=== PATIENT | female | born 1935 | race Caucasian/White ===

== ENCOUNTER 2016-08-30 12:54 | Emergency (ER) | payer MEDICARE, BC, OTHER ==
[2014-12-19 13:55] VITALS: BMI 28.3
[~2016-08-30 12:54] MED LIST: GLUCOPHAGE500 MG PO; HCTZ25 MG PO; INDERAL 40 MG T40 MG PO; MEDROL DOSE PACK4 MG PO; PRINIVIL10 MG PO; SYNTHROID88 MCG PO; TRICOR145 MG PO; VITAMIN D5000 UNIT PO; XANAX1 MG PO; ZETIA10 MG PO; ZYRTEC10 MG PO
[2016-08-30 14:03] LABS: BASOPHILS 0.1 % (0.0-2.0); EOSINOPHILS 3.2 % (0-7); HEMATOCRIT 40.7 % (36.0-48.0); HEMOGLOBIN 13.6 g/dL (12-16); IMMATURE GRANULOCYTES 0.3 % (0-5); LYMPHOCYTES 16.5 % (15-50); MCH 32.1 pg (26.0-34.0); MCHC 33.4 g/dL (31.0-37.0); MEAN PLATELET VOLUME 12.9 fL (7.4-10.4); MONOCYTES 5.2 % (2-11); NEUTROPHILS 74.7 % (40-80); PLATELET COUNT 187 10x3/uL (130-400); RBC 4.24 10x6/uL (4.00-5.40); RDW 13.6 % (11.5-14.5); WBC 7.6 10x3/uL (4.8-10.8)
== END 2016-08-30 14:54 | disposition home or self-care (01) ==
LOC: D.ER 12:54
PROVIDERS: Nurse Practitioner Acute Care
DX: K21.9 Gastro-esophageal reflux disease without esophagitis (principal); R51 Headache; I10 Essential (primary) hypertension; E11.9 Type 2 diabetes mellitus without complications

== ENCOUNTER 2018-02-19 13:53 | Emergency (ER) | payer MEDICARE ==
[~2018-02-19] VITALS: Ht 160 cm; Wt 76.8 kg
[2018-02-19 14:09] VITALS: Ht 160 cm; Wt 76.8 kg
[2018-02-19 15:14] VITALS: BP 151/87
== END 2018-02-19 15:17 | disposition home or self-care (01) ==
LOC: D.ER 13:53
DX: S43.402A Unspecified sprain of left shoulder joint, initial encounter (principal); X58.XXXA Exposure to other specified factors, initial encounter; Y93.89 Activity, other specified; Y92.89 Other specified places as the place of occurrence of the external cause; S50.02XA Contusion of left elbow, initial encounter; E11.9 Type 2 diabetes mellitus without complications; I10 Essential (primary) hypertension

== ENCOUNTER 2018-05-18 10:05 | Outpatient (CLI) | payer MEDICARE ==
[~2018-05-18] VITALS: Ht 154.9 cm; Wt 78.2 kg
--- NOTE | ~2018-05-18 | HEMODYNAMI ---
PATIENT:SHEA VIEYRA MEDICAL RECORD: [id number] : 39 LOCATION:DHusamCAT ADMISSION DATE: 05/18/18 Generatedon:05/18/201812:58 Patient name: SHEA VIEYRA Patient #: [id number] SSN: D OB: 1935 Date of study: 05/18/2018 Page: Of Hemodynamic Procedure Report Patient Data Patient Demographics Procedure consent was obtained First Name: SHEA Gender: Female Last Name: AZALIA : 1935 Middle Initial: F Age: 83 year(s) Patient #: [id number] Race: Unknown Additional ID: [id number] Contact details [address]: [address] [place] [address] State: [place] City: [place] Zip code: [address] Past Medical History Allergies Allergen Reaction Date Comments Reported Other allergy 05/18/2018 AMOXICILLIN, STATINS, HYDROCODONE, TRAMADOL, LEVOFLOXACIN Admission Admission Data Admission Date: 05/18/2018 Admission Time: 10:05 Weight (lbs.): 171.96 Weight (kg.): 78 Lab Results Lab Result Date: 05/18/2018 Lab Result Time: 0:00 Biochemistry Name Units Result Min Max BUN mg/dl 27 --(----)-* 7 18 Creatinine mg/dl 1 --(--*-)-- 0.6 1.3 CBC Name Units Result Min Max Hemoglobin g/dl 13.8 --(*---)-- 13.5 17.5 Platelets 10^3/l 164 --(*---)-- 130 400 Coagulation Name Units Result Min Max INR units 1.05 --(--*-)-- 0.85 1.17 PT sec 13.2 --(-*--)-- 11.6 15 Procedure Procedure Types Cath Procedure Diagnostic Procedure C [facility] w/Coronaries Sedation Charges Moderate Sedation up to 15 minutes Procedure Description Procedure Date Procedure Date: 05/18/2018 Procedure Start Time: 12:49 Procedure End Time: 12:57 Procedure Staff Name Function Nando Gaytan MD Performing Physician Liliana Truong RT Monitor Hector Agudelo RN Nurse Phillip Hernandez RT Scrub Matthew Scanlon RN Marketing And Communications Officer Procedure Data Cath Procedure Fluoroscopy Diagnostic fluoroscopy Total fluoroscopy Time: 1 time: 1 min min Diagnostic fluoroscopy Total fluoroscopy dose: 179 dose: 179 mGy mGy Contrast Material Contrast Material Type Amount (ml) Isovue 300 48 Entry Location Entry Primary Successful Side Size Upsize Upsize Entry Closure Succes sful Closure Location (Fr) 1 (Fr) 2 (Fr) Remarks Device Remarks Femoral Right 5 Fr Exoseal artery Estimated blood loss: 5 ml Diagnostic catheters Device Type Used For End Catheter Placement MULTIPACK Pigtail 5 Fr Procedure catheter MULTIPACK JL 4.0 5Fr Procedure catheter MULTIPACK 3DRC 5Fr Procedure catheter Procedure Complications No complications Procedure Medications Medication Administration Route Dosage 0.9% NaCl I.V. 100 ml/hr Oxygen etCO2 Nasal cannula 2 l/min Heparin Flush Bag added to field 2 bags (1000units/500ml NS) Lidocaine 2% added to field 20 Versed I.V. 1 mg Fentanyl I.V. 50 mcg Versed I.V. 1 mg Fentanyl I.V. 50 mcg Hemodynamics Rest HGB: 13.8 (g/dl) Heart Rate: 79 (bpm) Snapshots Pre Cath Intra NCS Post Cath Vital Signs Time Heart Resp SPO2 etCO2 NIBP (mmHg) Rhythm Pain Sedation Rate (ipm) (%) (mmHg) Status Level (bpm) 12:21:06 78 22 99 30.1 176/84(126) NSR 0 (11) 10(A) , No pain 12:25:28 79 19 97 33.1 172/75(125) NSR 0 (11) 10(A) , No pain 12:29:53 79 18 96 33.1 166/73(119) NSR 0 (11) 10(A) , No pain 12:34:17 74 15 97 33.1 157/76(119) NSR 0 (11) 10(A) , No pain 12:38:39 73 17 96 35.3 149/74(126) NSR 0 (11) 10(A) , No pain 12:42:57 76 17 94 36.1 156/78(123) NSR 0 (11) 10(A) , No pain 12:47:21 72 11 93 38.3 129/60(97) NSR 0 (11) 10(A) , No pain 12:51:33 71 24 95 38.3 135/72(103) NSR 0 (11) 10(A) , No pain 12:55:47 71 14 94 36.8 141/71(100) NSR 0 (11) 10(A) , No pain Medications Time Medication Route Dose Verified Delivered Reason Notes Eff ectiveness by by 12:22:58 0.9% NaCl I.V. 100 Hector Hector Per ml/hr Lorigan Lorigan physician RN RN 12:23:07 Oxygen etCO2 2 Hector Hector Per Nasal l/min Lorigan Lorigan physician cannula RN RN 12:23:17 Heparin Flush added 2 Hector Hector used for Bag to bags Lorigan Lorigan procedure (1000units/500ml field RN RN NS) 12:23:28 Lidocaine 2% added 20ml Hector Hector for local to vial Lorigan Lorigan anesthetic field RN RN 12:39:15 Versed I.V. 1 mg Hector Hector for Lorigan Lorigan sedation RN RN 12:39:24 Fentanyl I.V. 50 Hector Hector for mcg Lorigan Lorigan sedation RN RN 12:52:56 Versed I.V. 1 mg Hector Hector for Lorigan Lorigan sedation RN RN 12:53:00 Fentanyl I.V. 50 Hector Hector for mcg Lorigan Lorigan sedation RN substation superintendent Log Time Note 11:55:11 Matthew Scanlon RN sent for patient. Start room use. 12:01:53 Patient Weight : 171.96 lbs 12:02:42 Lab Result : Hemoglobin 13.8 g/dl 12:02:42 Lab Result : Creatinine 1 mg/dl 12:02:42 Lab Result : BUN 27 mg/dl 12:02:42 Lab Result : INR 1.05 units 12:02:42 Lab Result : PT 13.2 sec 12:02:42 Lab Result : Platelets 164 10^3/l 12:03:12 Time tracking: Regular hours (M-F 7:00 - 5:00) 12:03:17 Plan of Care:Hemodynamics will remain stable., Cardiac rhythm will remain stable., Comfort level will be maintained., Respiratory function will remain adequate., Patient/ family verbilizes understanding of procedure., Procedure tolerated without complication., Recovers from procedure without complications.. 12:12:08 Patient received from ED to CCL 2 Alert and oriented. Tansferred to table in Supine position. 12:12:09 Warm blankets applied, and ricarda hugger turned on for patient comfort. 12:12:09 Correct patient and procedure confirmed by team. 12:12:10 Signed procedure consent form obtained from patient. 12:12:11 ECG and BP/O2 sat monitors applied to patient. 12:19:54 Vital chart was started 12:20:01 Family in waiting room. 12:20:05 Patient NPO since Midnight. 12:22:58 0.9% NaCl 100 ml/hr I.V. was administered by Hector Agudelo RN; Per physician; 12:23:07 Oxygen 2 l/min etCO2 Nasal cannula was administered by Hector Agudelo RN; Per physician; 12:23:17 Heparin Flush Bag (1000units/500ml NS) 2 bags added to field was administered by Hector Agudelo RN; used for procedure; 12:23:28 Lidocaine 2% 20ml vial added to field was administered by Hector Agudelo RN; for local anesthetic; 12:25:29 Baseline sample Acquired. 12:25:32 Rhythm: sinus rhythm 12:25:34 Full Disclosure recording started 12:25:40 H&P Date Dictated: 05/18/2018 Emergent; H&P N/A. 12:25:41 Pre-procedure instructions explained to patient. 12:25:41 Pre-op teaching completed and patient verbalized understanding. 12:25:44 Is the patient allergic to Iodine/contrast media? No. 12:25:46 Is patient on blood thinner?Yes 12:25:49 ACC The patient was administered the following blood thiners within the last 24 hours: ACCPlavix 12:26:49 Patient diabetic? Yes. 12:26:56 If diabetic: On Metformin? No 12:26:58 Previous problem with sedation/anesthesia? No ? 12:27:05 Snore? Yes 12:27:07 Sleep apnea? No 12:27:08 Deviated septum? No 12:27:08 Opens mouth fully? Yes 12:27:09 Sticks out tongue? Yes 12:27:12 Airway obstruction? No ? 12:27:15 Dentures? No ? 12:27:19 Pre procedure: right dorsailis pedis pulse 1+ Palpable, but thready & weak; easily obliterated 12:27:21 Patient pain scale 0/10 ?. 12:27:26 IV patent on arrival in left forearm with 0.9% NaCl at [facility]. 12:27:28 Lab results completed and on chart. 12:27:30 Right groin area was prepped with chlora-prep and draped in sterile fashion 12:27:31 Alarms reviewed by R. N. 12:27:32 Sharps counted by scrub and verified by R.N. 12:27:37 Use device set Femoral Dx 12:27:38 Tegaderm 4 x 4 (1626W) opened to sterile field. 12:27:40 ACIST Manifold (82624) opened to sterile field. 12:27:40 ACIST Hand Control (61316) opened to sterile field. 12:27:41 ACIST Syringe (57078) opened to sterile field. 12:27:42 Bag Decanter (2002S) opened to sterile field. 12:27:42 Medline Cath Pack ([id number]) opened to sterile field. 12:27:43 DIAGNOSTIC WIRE .035 260cm J wire (415465) opened to sterile field. 12:27:44 DIAGNOSTIC Multipack 5Fr catheter set (RX1100) opened to sterile field. 12:27:45 SHEATH 5FR Blair (FPT808) opened to sterile field. 12:37:53 Patient allergic to Other allergyAMOXICILLIN, STATINS, HYDROCODONE, TRAMADOL, LEVOFLOXACIN 12:38:33 --------ALL STOP TIME OUT------ 12:38:34 Final Timeout: patient, procedure, and site verified with staff and physician. All members of the team are in agreement. 12:38:35 Right groin site verified by team. 12:38:40 Physical assessment completed. ASA score P 2 - A patient with mild systemic disease as per Nando Gaytan MD. 12:38:43 Sedation plan: IV Moderate Sedation Medication:Versed, Fentanyl 12:39:15 Versed 1 mg I.V. was administered by Hector Agudelo RN; for sedation; 12:39:24 Fentanyl 50 mcg I.V. was administered by Hector Agudelo RN; for sedation; 12:42:29 Zero performed for pressure channel P1 12:49:13 Procedure started. 12:49:45 Local anesthetic to right femoral artery with Lidocaine 2% by Nando Gaytan MD.INITIAL ACCESS ONLY 12:50:17 A 5 Fr sheath was inserted into the Right Femoral artery 12:50:37 A MULTIPACK Pigtail 5 Fr catheter was advanced over the wire and used for Procedure. 12:50:49 LV gram done using MENG 12:50:52 Injector settings: Ml/sec: 10, Volume: 20, 12:51:16 EF : 70 % 12:51:21 Catheter removed. 12:51:28 A MULTIPACK JL 4.0 5Fr catheter was advanced over the wire and used for Procedure. 12:52:14 LCA angiography performed. 12:52:19 Catheter removed. 12:52:26 A MULTIPACK 3DRC 5Fr catheter was advanced over the wire and used for Procedure. 12:52:56 Versed 1 mg I.V. was administered by Hector Agudelo RN; for sedation; 12:53:00 Fentanyl 50 mcg I.V. was administered by Hector Agudelo RN; for sedation; 12:53:17 RCA angiography performed. 12:53:25 Catheter removed. 12:53:27 EXOSEAL 5Fr (EX500) opened to sterile field. 12:53:50 Sheath removed intact; hemostasis achieved with Exoseal to the Right Femoral artery. 12:54:04 Procedure ended.(Physican Out) 12:54:15 Fluoroscopy time 01.00 minutes. 12:54:19 Fluoroscopy dose: 179 mGy 12:54:19 Flurop Dose total: 179 12:54:22 Contrast amount:Isovue 300 48ml. 12:54:23 Sharps counted by scrub and verified by R.N. 12:54:28 Post-op/insertion site Right Femoral artery dressed using a 4 x 4 and Tegaderm. 12:54:33 Post right femoral artery:stable, soft, clean and dry 12:55:03 Post-procedure physical assessment completed. ASA score P 2 - A patient with mild systemic disease as per Nando Gaytan MD. 12:55:06 Post procedure rhythm: sinus rhythm 12:55:09 Estimated blood loss: 5 ml 12:55:10 Post procedure instruction explained to patient.Patient verbalizes understanding. 12:55:10 Patient needs reinforcement of post procedure teaching. 12:56:04 Procedure type changed to Cath procedure, Diagnostic procedure, LHC, LHC w/Coronaries, Sedation Charges, Moderate Sedation up to 15 minutes 12:56:47 Procedure and supply charges have been captured, reviewed, submitted and are correct. 12:56:49 Procedure Complication : No complications 12:56:52 Vital chart was stopped 12:56:52 See physician's report for complete and final results. 12:56:53 Report given to Pre/Post Procedure Room. 12:56:57 Patient transfered to Pre/Post Procedure Room with Bed. 12:56:59 Procedure ended. 12:56:59 Full Disclosure recording stopped 12:57:04 End room use (Document Last) Device Usage Item Name Manufacture Quantity Catalog Hospital Part Current Minimal L ot# / Number Charge Number Stock Stock Serial# Code Tegaderm 4 3M 1 1626W [id number] [id number] 120612 5 x 4 (1626W) ACIST Acist 1 16711 943913 452640 840662 5 Manifold Medical (66443) Systems Inc ACIST Hand Acist 1 43408 613281 165840 056594 5 Control Medical (42696) Systems Inc ACIST Acist 1 23668 584915 120917 899197 20 Syringe Medical (34265) Systems Inc Bag Microtek 1 2001S 580698 75358 064087 5 Decanter Medical Inc. () Medline Medline 1 [id number] 518371 51743 267870 5 Cath Pack ([id number]) DIAGNOSTIC St Gus 1 450825 028716 276810 865345 30 WIRE .035 260cm J wire (355598) DIAGNOSTIC Cardinal 1 BD0963 589986 86420 163545 30 Multipack Health 5Fr catheter set (QE9338) SHEATH 5FR Terumo 1 TYU179 826252 715741 957209 5 Blair (RAY828) MULTIPACK Cardinal 1 145258 5 Pigtail 5 Health Fr catheter MULTIPACK Cardinal 1 594180 5 JL 4.0 5Fr Health catheter MULTIPACK Cardinal 1 842254 5 3DRC 5Fr Health catheter EXOSEAL 5Fr Cardinal 1 EX500 528984 472057 506542 10 (EX500) Health Signature Audit [place] Stage Time Signature Unsigned Intra-Procedure 05/18/2018 Liliana Truong 12:58:37 PM RT(R) Signatures Monitor : Liliana Truong Signature : RT Date : Time : [place] [address] [place] [address]
--- NOTE | ~2018-05-18 | CN ---
PATIENT NAME:SHEA VIEYRA MEDICAL RECORD: [id number] : 39 LOCATION:D.CAT ADMIT DATE: ACCOUNT: [id number] CONSULTING PHYSICIAN: TOBIN TORRES MD REFERRING PHYSICIAN: FILOMENA HARTLEY MD DATE OF CONSULTATION: 05/18/2018 CARDIOLOGY CONSULTATION DIAGNOSES: 1. Chest pain compatible with angina. 2. Diabetes. 3. Hypertension. 4. Family history of coronary disease. HISTORY OF PRESENT ILLNESS: Ms. Vieyra has multiple risk factors. She has been having episodes of chest pain that has been increasing, last night it was worse. She had multiple hours of chest heaviness, centered midsternal to the right side. No real radiation. Nothing she did could make it better or worse. It was absolutely not positional. Over the past few weeks, she has also felt more short of breath. PHYSICAL EXAMINATION: GENERAL APPEARANCE: Well-nourished, well-developed, appears stated age. Level of distress, comfortable. PSYCHIATRIC: Mental status, alert, normal affect. Orientation, oriented to time, place and person. EYES: Lids and conjunctiva, noninjected. No discharge, no pallor. ENT: Lips, teeth, gums, normal dentition. Oropharynx, no cyanosis, no pallor. NECK: Carotid arteries, bilateral normal upstroke, no bruits, no thrills. JUGULAR VEINS: No jugular venous pressure or distention. CERVICAL LYMPH NODES: Nontender, nonenlarged. THYROID: Not enlarged. Nontender. No nodules. LUNGS: Respiratory effort, unlabored. CHEST: Normal curvature. No thoracic deformity. No chest wall tenderness. Percussion, resonant. Auscultation, clear. No wheezes, no rales, no rhonchi. CARDIOVASCULAR: Precordial exam, nondisplaced. No heaves or pericardial thrills. Rate and rhythm, regular. Heart sounds, normal S1, normal S2. No S3, no gallop, no rub. Systolic murmur, not heard. Diastolic murmur, not heard. EXTREMITIES: No cyanosis, no edema. Peripheral pulses, full and equal in all extremities, except as noted. No bruits appreciated. ABDOMEN: Soft, nondistended. Normal aorta. No bruit. Nontender. No masses. Liver, nontender, no hepatomegaly. Spleen, nontender, no splenomegaly. MUSCULOSKELETAL: No joint tenderness. No joint swelling. No erythema. NEUROLOGICAL: Normal gait, normal strength, normal tone. SKIN: Warm and dry. OVERALL IMPRESSION: Chest pain in an escalating unstable fashion. Most likely she has hemodynamically significant coronary artery disease. We will proceed with coronary angiography. Further care depends upon findings of the angiography. TRANSINT:[id number] Voice Confirmation ID: [id number] DOCUMENT ID: [id number] CONSULT REPORT [id number] SHEA VIEYRA, TOBIN GARCIA at 1324 CC: [id number] DICTATION DATE: 05/18/18 1055 POULTRY SERVICE TECHNICIAN: 05/18/18 1215 REG [facility] [address] [place] [address]
--- NOTE | ~2018-05-18 | EC ---
PATIENT:SHEA VIEYRA DATE OF SERVICE: 05/18/18 SEX: F MEDICAL RECORD: [id number] DATE OF : 39 LOCATION:D.CAT AGE OF PATIENT: 83 ADMISSION DATE: 05/18/18 REFERRING PHYSICIAN: INTERPRETING PHYSICIAN: TOBIN GAYTAN MD ECHOCARDIOGRAM REPORT ECHO CHARGES 4 ECHO COMPLETE Date: 05/18/18 CLINICAL DIAGNOSIS: ASSESS EF, AND VALVES ECHOCARDIOGRAPHIC MEASUREMENTS (adult normal given) AC root (d.<3.7cm) 3.1 cm LV Septum d (<1.2 cm> 1.5 cm Valve Excursion 1.2 cm LV Septum (systole) 1.9 cm Left Atria (s.<4.0cm> 3.6 cm LVPW d(<1.2cm) 0.8 cm RV (d.<2.3cm) 2.3 cm LVPW (sytole) 1.2 cm LV diastole(<5.6CM) 4.4 cm MV E-F(>70mm/sec) cm LV systole 3.3 cm LVOT Diameter 1.4 cm MV exc.(>10mm) cm Est.ejection fraction (50-75%) % DOPPLER: LVIT cm/sec A 69 cm/sec E 55 cm/sec LA cm/sec RVSP 21.0 mmHg LVOT 99 cm/sec AOP1/2T m/s Asc. Ao 159 cm/sec RVOT 62 cm/sec RA cm/sec PA 81 cm/sec AV Gradient Peak 10.1 mmHg AV Mean 5.7 mmHg AV Area 1.1 cm MV Gradient Peak 2.4 mmHg MV Mean 1.4 mmHg MV Area cm COMMENTS: Tuna Purse Seiner: Irineo MORRISON [employer] Sharpshooter: 1 Dr. Gaytan TAPE# PACS Pericardial Effusion N DATE OF SERVICE: 05/18/2018 FINDINGS: 1. Left ventricular chamber size is within normal limits. Left ventricular systolic function is normal. Overall ejection fraction is estimated at 65%. 2. Left atrium, right atrium, and right ventricle chamber sizes are within normal limit. 3. Valvular structures have normal structure and motion. 4. Doppler interrogation only reveals trace tricuspid regurgitation and that is not hemodynamically significant. No other valvular insufficiency or stenosis. ECHOCARDIOGRAM REPORT [id number] SHEA VIEYRA 5. No evidence of pericardial effusion or left ventricular thrombus. TRANSINT:[id number] Voice Confirmation ID: [id number] DOCUMENT ID: [id number] TOBIN GAYTAN MD at 1456 CC: [id number] DICTATION DATE: 05/19/18829 APPLICATION ENGINEER: 05/19/18 1144 DEP CLI 05/18/18 [place] [id number] [place] [id number]
--- NOTE | ~2018-05-18 | OP ---
PATIENT NAME: SHEA VIEYRA MEDICAL RECORD: [id number] :39 LOCATION:D.CAT ADMISSION DATE: SURGEON: TOBIN TORRES MD DATE OF OPERATION: 05/18/2018 PROCEDURES: 1. Left heart catheterization. 2. Selective coronary angiography. 3. Left ventriculogram. INDICATION: Angina, shortness of breath. PROCEDURE: After informed consent was obtained and after a detailed explanation of risks, benefits as well as alternative therapies, the patient elected to proceed with angiogram and heart catheterization. The right radial area was prepped and draped in normal sterile fashion. Right radial artery was cannulated via modified Seldinger technique with placement of 6-Ghanaian sheath. FINDINGS: Left ventriculogram was performed in normal standard 30-degree MENG view, reveals good cardiac wall motion throughout all segments. Overall ejection fraction estimated 60%. SELECTIVE CORONARY ANGIOGRAPHY: Left main, left anterior descending, left circumflex, right coronary artery are all smooth-walled vessels with no angiographic evidence of coronary artery disease. OVERALL IMPRESSION: 1. No angiographic evidence of coronary artery disease. 2. Normal left heart pressures. 3. Normal left ventricular systolic function. Chest pain is noncardiac in etiology. No further cardiac workup needs to be ascertained. TRANSINT:[id number] Voice Confirmation ID: [id number] DOCUMENT ID: [id number] TOBIN TORRES MD at 1324 CC: [id number] DICTATION DATE: 05/18/18 1257 ENDOCRINOLOGIST: 05/18/18 1321 [facility] [address] [place] [address]
[2018-05-18 10:17] VITALS: Ht 154.9 cm; Wt 78.2 kg
[2018-05-18] MEDS ORDERED: NEXIUM40 MG PO (10:24)
[2018-05-18] MEDS ORDERED: GLIMEPIRIDE1 MG PO (10:25)
[2018-05-18] MEDS ORDERED: MECLIZINE HCL25 MG PO (10:25)
[2018-05-18] MEDS ORDERED: TOPROL XL50 MG PO (10:25)
[2018-05-18] MEDS ORDERED: COZAAR25 MG PO (10:26)
[2018-05-18] MEDS ORDERED: D3 (10:27)
[2018-05-18] MEDS ORDERED: B12 (10:27)
[2018-05-18 10:34] LABS: BASOPHILS 0.3 % (0-2); EOSINOPHILS 1.7 % (0-7); HEMOGLOBIN 13.8 g/dL (12-16); IMMATURE GRANULOCYTES 0.2 % (0-5); LYMPHOCYTES 20.7 % (15-50); MCH 32.3 pg (26.0-34.0); MCHC 34.5 g/dL (31.0-37.0); MCV 93.7 fL (80.0-100.0); MEAN PLATELET VOLUME 11.1 fL (7.4-10.4); MONOCYTES 6.9 % (2-11); NEUTROPHILS 70.2 % (40-80); PLATELET COUNT 164 10x3/uL (130-400); RBC 4.27 10x6/uL (4.00-5.40); WBC 9.8 10x3/uL (4.8-10.8)
[2018-05-18 10:49] LABS: ALBUMIN 3.2 g/dL (3.4-5.0); ALKALINE PHOSPHATASE 75 U/L (46-116); ALT (SGPT) 53 U/L (10-68); BILIRUBIN - TOTAL 0.36 mg/dL (0.2-1.3); CALC OSMOLALITY 283 mosm/kg (275-300); CALCIUM 9.1 mg/dL (8.5-10.1); CARBON DIOXIDE 24.6 mmol/L (21.0-32.0); CHLORIDE - SERUM 104 mmol/L (98-107); GLUCOSE 108 mg/dL (74-106); POTASSIUM - SERUM 4.1 mmol/L (3.5-5.1); PROTEIN - SERUM 7.2 g/dL (6.4-8.2); SODIUM 139 mmol/L (136-145); UREA NITROGEN 27 mg/dL (7-18); eGFR NON AFRICAN AMERICAN 56 mL/min (90-120)
[2018-05-18 10:51] LABS: APTT 32.2 SECONDS (22.8-39.4); INR 1.05 (0.85-1.17); PROTIME 13.2 SECONDS (11.6-15.0)
[2018-05-18 11:01] LABS: CKMB 0.6 U/L (0.0-3.6); CREATINE KINASE 54 UL (21-215); MAGNESIUM - SERUM 1.5 mg/dL (1.8-2.4); TROPONIN-I < 0.017 ng/mL (0.000-0.060)
[2018-05-18 11:03] LABS: AMYLASE - SERUM 64 U/L (25-115); LIPASE 245 U/L (73-393)
[2018-05-18 12:09] VITALS: BP 143/73
== END 2018-05-18 15:14 | disposition home or self-care (01) ==
LOC: D.ER 10:05 → D.CATH 10:05 → EDSTATUS 11:21 → D.CATH 15:14
PROVIDERS: Family Medicine
DX: R07.89 Other chest pain (principal); E11.9 Type 2 diabetes mellitus without complications; I10 Essential (primary) hypertension; Z82.49 Family history of ischemic heart disease and other diseases of the circulatory system; Z01.812 Encounter for preprocedural laboratory examination

== ENCOUNTER 2018-06-12 23:53 | Inpatient (IN) | payer MEDICARE ==
[~2018-06-12] VITALS: Ht 154.9 cm; Wt 77.3 kg
[~2018-06-12 23:53] MED LIST changes: +B12; +COZAAR25 MG PO; +D3; +GLIMEPIRIDE1 MG PO; +MECLIZINE HCL25 MG PO; +NEXIUM40 MG PO; +TOPROL XL50 MG PO
[2018-06-13 00:20] LABS: HEMATOCRIT 37.7 % (36.0-48.0); HEMOGLOBIN 12.8 g/dL (12-16); LYMPHOCYTES 26.3 % (15-50); MCH 31.8 pg (26.0-34.0); MCV 93.5 fL (80.0-100.0); MEAN PLATELET VOLUME 10.8 fL (7.4-10.4); NEUTROPHILS 66.9 % (40-80); RBC 4.03 10x6/uL (4.00-5.40); RDW 12.5 % (11.5-14.5); WBC 6.2 10x3/uL (4.8-10.8)
[2018-06-13 00:21] LABS: PLATELET COUNT 117 10x3/uL (130-400)
[2018-06-13 00:38] LABS: ALBUMIN 3.5 g/dL (3.4-5.0); ALKALINE PHOSPHATASE 59 U/L (46-116); ALT (SGPT) 46 U/L (10-68); BILIRUBIN - TOTAL 0.29 mg/dL (0.2-1.3); CALC OSMOLALITY 288 mosm/kg (275-300); CARBON DIOXIDE 26.8 mmol/L (21.0-32.0); CHLORIDE - SERUM 106 mmol/L (98-107); GLUCOSE 110 mg/dL (74-106); POTASSIUM - SERUM 3.9 mmol/L (3.5-5.1); PROTEIN - SERUM 6.8 g/dL (6.4-8.2); SODIUM 141 mmol/L (136-145); UREA NITROGEN 33 mg/dL (7-18); eGFR NON AFRICAN AMERICAN 56 mL/min (90-120)
[2018-06-13 00:45] LABS: LIPASE 311 U/L (73-393); PRO BNP 266 pg/mL (0-450); TROPONIN-I < 0.017 ng/mL (0.000-0.060)
--- NOTE | 2018-06-13 02:20 | NUR ---
PT ARRIVED ON UNIT VIA STRETCHER, ESCORTED BY ER STAFF AND FAMILY MEMBER. IV IN RIGHT AC SALINE LOCKED. PLACED TELEMETRY ON PT AND READING 67 SR AT THIS ASSESSMENT. LUNGS CLEAR. VITALS STABLE. PLACED ON CONTINUOUS PULSE OX AND VITALS MONITORING. BED ALARM PLACED FOR PT SAFETY. SIDE RAILS UP X2. WILL MONITOR FOR NEEDS.
[2018-06-13 02:27] VITALS: BP 184/80; Ht 154.9 cm; Wt 77.3 kg
--- NOTE | 2018-06-13 02:35 | NUR ---
ADMISSION ASSESSMENT AND HISTORY COMPLETE. HOME MEDICATION RECONCILLIATION COMPLETE.
[2018-06-13 04:00] VITALS: BP 162/69
--- NOTE | 2018-06-13 07:15 | NUR ---
PATIENT IN BED WITH EYES CLOSED RESTING QUIETLY. NO COMPLAINTS OR SIGNS OF DISTRESS. CALL LIGHT WITHIN REACH.
[2018-06-13 08:00] VITALS: BP 155/84
[2018-06-13 12:00] VITALS: BP 163/66
--- NOTE | 2018-06-13 19:00 | NUR ---
REPORT RECEIVED AND CARE OF PT ASSUMED. PT SITTING UP ON SIDE OF BED WATCHING TV. IV IN RIGHT AC PATENT WITH ANTIBIOTICS INFUSING AT THIS TIME. TELEMETRY IN PLACE. WILL MONITOR FOR NEEDS.
--- NOTE | 2018-06-13 19:27 | NUR ---
PTIENT IN BED WITH IV INTACT. NO COMPLAINTS OR SIGNS OF DISTRESS. CALL LIGHT LYNDON GRIDER.
[2018-06-13 20:47] VITALS: BP 170/47
--- NOTE | 2018-06-13 21:32 | NUR ---
HS MEDICATIONS GIVEN. PT DECLINED FSBS, SHE ONLY CHECKS ONCE AT HOME.
--- NOTE | 2018-06-13 21:45 | NUR ---
HS SNACK GIVEN: MIRTA ZAVALA. WILL CONTINUE TO MONITOR FOR NEEDS.
[2018-06-14 00:41] VITALS: BP 154/63
[2018-06-14 04:00] VITALS: BP 165/83
--- NOTE | 2018-06-14 07:15 | NUR ---
ASSESSMENT PER FLOW SHEET. PT IS WITHOUT DISTRESS. JESSICA MAT ON BED,BAND ON PT. NEEDS YELLOW GOWN WHEN SOME ON UNIT.CALL LIGHT IN REACH
[2018-06-14 07:59] LABS: BASOPHILS 0.2 % (0-2); EOSINOPHILS 3.1 % (0-7); HEMOGLOBIN 12.6 g/dL (12-16); IMMATURE GRANULOCYTES 0.3 % (0-5); LYMPHOCYTES 20.5 % (15-50); MCH 31.3 pg (26.0-34.0); MCHC 33.2 g/dL (31.0-37.0); MCV 94.5 fL (80.0-100.0); MEAN PLATELET VOLUME 12.3 fL (7.4-10.4); MONOCYTES 5.9 % (2-11); PLATELET COUNT 116 10x3/uL (130-400); RBC 4.02 10x6/uL (4.00-5.40); RDW 12.8 % (11.5-14.5); WBC 6.2 10x3/uL (4.8-10.8)
[2018-06-14 08:09] VITALS: BP 168/69
[2018-06-14 08:34] LABS: ALBUMIN 2.9 g/dL (3.4-5.0); ANION GAP 13.2 mmol/L (8-16); BILIRUBIN - TOTAL 0.44 mg/dL (0.2-1.3); CALCIUM 8.5 mg/dL (8.5-10.1); CARBON DIOXIDE 25.6 mmol/L (21.0-32.0); POTASSIUM - SERUM 3.8 mmol/L (3.5-5.1); PROTEIN - SERUM 6.3 g/dL (6.4-8.2)
--- NOTE | 2018-06-14 11:37 | NUR ---
FSBS 127.
[2018-06-14 12:09] VITALS: BP 170/67
--- NOTE | 2018-06-14 13:05 | NUR ---
PT UPSET BECAUSE LUNCH TRAYS GET HERE AFTER 1200. SHE STATES SHE EATS EARLY AT HOME AND WOULD LIKE TRAY BY 1200. IRENE OSBORN SPOKE WITH PT AND WILL TRY AND HAVE HER TRAY DELIVERED FIRST.
--- NOTE | 2018-06-14 14:51 | NUR ---
IV PULLED PARTIALLY OUT BY PT PUTTING ON ROBE. IV DCD WITH CATH TIP INTACT. IV RESITED TO LEFT FOREARM USING ASEPTIC TECH X1 STICK,22G.
[2018-06-14] MEDS ORDERED: ZPAK PO (14:57)
[2018-06-14] MEDS ORDERED: COZAAR50 MG PO (14:57)
--- NOTE | 2018-06-14 15:41 | MORECARE ---
CASE MANAGEMENT DISCHARGE SUMMARY PATIENT: SHEA VIEYRA UNIT: [id number] ADM DATE: 06/13/18 AGE: 83 : 37 SEX: F ROOM/BED: D.2219 AUTHOR: PATY RUBIN PHYSICIAN: REFERRING PHYSICIAN: RONEL CAUSEY MD DATE OF SERVICE: 06/14/18 Discharge Plan Patient Name: SHEA VIEYRA Facility: [facility]:[place] : 1935 Planned Disposition: Home Anticipated Discharge Date: 06/14/18 Discharge Date: Expected LOS: 1 Initial Reviewer: [email or web address] Initial Review Date: 06/14/2018 Generated: 06/14/18 4:41 pm Comments DCP- Discharge Planning Updated by [email or web address]: Vonnie Lawson on 06/14/18 2:[address] Patient Name: SHEA VIEYRA Admission Status: ER Accout number: [id number] Admission Date: 06-13-2018 : 1935 Admission Diagnosis: Attending: RONEL CAUSEY Current LOS: 1 Anticipated DC Date: 06-14-2018 Planned Disposition: Home Primary Insurance: [facility] [employer] Discharge Planning Comments: Received discharge order, she is alone in the room. States her daughter lives with her and will be picking her up for discharge. States she does not need any DME or home health. States the [facility] has a way to get home health if I need it. I informed her if she changed her mind, her primary doctor could order it and to let her PCP know. No needs identified. CM will continue to follow and assist with discharge planning/needs. Medical Records Library Professor: Vonnie Lawson Patient Name: SHEA VIEYRA Page [id number] at 1541 All edits/amendments must be made on the electronic document DICTATION DATE: 06/14/181539 GRAVITY PROSPECTING OPERATOR HELPER: POLINA 06/14/18 154 RPT#: [id number] DC DATE: STATUS: ADM IN [facility] [address] [place] [address] END OF REPORT
--- NOTE | 2018-06-14 16:29 | NUR ---
DISCHARGE INSTRUCTIONS WITH PT,STATES UNDERSTANDING. HER DAUGHTER WILL BE HERE AFTER 183 TO PICK PT UP AFTER SHE GETS OFF WORK.
--- NOTE | 2018-06-14 17:54 | NUR ---
OT NOTE: PT COMPLETED BED MOB WITH MIN A. PT COMPLETED SIT TO STAND WITH CGA. PT COMPLETED BUE AROM EXS. THANK YOU, SETH SANTIAGO
--- NOTE | 2018-06-14 18:27 | NUR ---
LEFT UNIT VIA WHEELCHAIR FOR TRANSPORT HOME
--- NOTE | 2018-06-15 14:33 | MORECARE ---
CASE MANAGEMENT DISCHARGE SUMMARY PATIENT: SHEA VIEYRA UNIT: [id number] ADM DATE: 06/13/18 AGE: 83 : 39 SEX: F ROOM/BED: D.2219 AUTHOR: PATY RUBIN PHYSICIAN: REFERRING PHYSICIAN: RONEL CAUSEY MD DATE OF SERVICE: 06/15/18 Discharge Plan Patient Name: SHEA VIEYRA Facility: [facility]:[place] : 1935 Planned Disposition: Home Anticipated Discharge Date: 06/14/18 Discharge Date: 06/14/2018 Expected LOS: 1 Initial Reviewer: [email or web address] Initial Review Date: 06/14/2018 Generated: 06/15/18 3:33 pm Comments DCP- Discharge Planning Updated by [email or web address]: Vonnie Lawson on 06/14/18 2:[address] Patient Name: SHEA VIEYRA Admission Status: ER Accout number: [id number] Admission Date: 06-13-2018 : 1935 Admission Diagnosis: Attending: RONEL CAUSEY Current LOS: 1 Anticipated DC Date: 06-14-2018 Planned Disposition: Home Primary Insurance: [facility] [employer] Discharge Planning Comments: Received discharge order, she is alone in the room. States her daughter lives with her and will be picking her up for discharge. States she does not need any DME or home health. States the [facility] has a way to get home health if I need it. I informed her if she changed her mind, her primary doctor could order it and to let her PCP know. No needs identified. CM will continue to follow and assist with discharge planning/needs. Technical Mgr: Vonnie Lawson Last DP export: 06/14/18 2:41 p Patient Name: SHEA VIEYRA Page [id number] at 1433 All edits/amendments must be made on the electronic document DICTATION DATE: 06/15/18 1432 BOX TOE BUFFER: POLNIA 06/15/18 1432 RPT#: [id number] DC DATE:06/14/18 STATUS: DIS IN [place] [id number] [place] [address] END OF REPORT
== END 2018-06-14 18:28 | disposition home or self-care (01) | DRG 194 ==
LOC: D.ER 23:53 → D.MS 06-13 01:25 → OBSVTIME 06-13 01:25 → D.MS 06-13 16:32
PROVIDERS: Family Medicine; ADMIT Emergency Medicine
DX: J18.9 Pneumonia, unspecified organism (principal); J98.11 Atelectasis; E11.65 Type 2 diabetes mellitus with hyperglycemia; I10 Essential (primary) hypertension; E03.9 Hypothyroidism, unspecified

== ENCOUNTER 2019-04-23 11:40 | Emergency (ER) | payer MEDICARE ==
[~2019-04-23] VITALS: Ht 154.9 cm; Wt 77.3 kg
[~2019-04-23 11:40] MED LIST changes: +COZAAR50 MG PO; +ZPAK PO
[2019-04-23 11:42] VITALS: Ht 154.9 cm; Wt 77.3 kg
[2019-04-23] MEDS ORDERED: TORADOL10 MG PO (14:12)
[2019-04-23 15:08] VITALS: BP 128/68
== END 2019-04-23 15:09 | disposition home or self-care (01) ==
LOC: D.ER 11:40
DX: S01.01XA Laceration without foreign body of scalp, initial encounter (principal); X58.XXXA Exposure to other specified factors, initial encounter; W08.XXXA Fall from other furniture, initial encounter; Y93.9 Activity, unspecified; S30.0XXA Contusion of lower back and pelvis, initial encounter; E11.9 Type 2 diabetes mellitus without complications; M19.90 Unspecified osteoarthritis, unspecified site

== ENCOUNTER 2019-04-29 08:32 | Emergency (ER) | payer MEDICARE ==
[~2019-04-29] VITALS: Ht 154.9 cm; Wt 77.3 kg
[~2019-04-29 08:32] MED LIST changes: +TORADOL10 MG PO
[2019-04-29 08:37] VITALS: BP 134/67; Ht 154.9 cm; Wt 77.3 kg
== END 2019-04-29 08:48 | disposition home or self-care (01) ==
LOC: D.ER 08:32
DX: Z48.02 Encounter for removal of sutures (principal); E11.9 Type 2 diabetes mellitus without complications; Z79.84 Long term (current) use of oral hypoglycemic drugs